=== PATIENT | male | born 1950 | race Caucasian/White ===

== ENCOUNTER → 2017-01-29 | Day surgery (SDC) | payer MEDICARE, OTHER ==
[~2017-01-29] MED LIST: Lactated Ringers 1,000 ML IV SCH; Propofol 200 MG/20 ML SDV IV ONE
[2017-01-29 11:57] VITALS: BP 125/69
--- NOTE | 2017-02-01 08:54 | OR ---
DATE OF OPERATION: 01/29/2017 PREOPERATIVE DIAGNOSIS: PRIOR LARGE TUBULOVILLOUS POLYP REMOVAL. POSTOPERATIVE DIAGNOSIS: PRIOR LARGE TUBULOVILLOUS POLYP REMOVAL. SURGEON: Ulises Sanders MD PROCEDURE: FULL-LENGTH COLONOSCOPY. ANESTHESIA: DOBIE MAN due to distal coronary artery disease. COMPLICATIONS: None. SPECIMEN: None. FINDINGS: Normal full-length colonoscopy. RECOMMENDATIONS: The patient actually should have one more followup in 3 years. 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 He is in for followup for that. DESCRIPTION OF PROCEDURE: The patient was prepped and draped, placed in the left lateral decubitus position. A lubricated Olympus colonoscope was inserted and relatively easily advanced to the cecum. Direct visualization of the ileocecal valve and appendiceal orifice was accomplished. The bowel prep was adequate. Upon withdrawal of scope, the cecum, ascending, and transverse colon completely benign. Throughout the entire left colon, I found no signs of any polyps, mass, ulcerations, or bleeding sites. No vascular abnormalities or signs of colitis. No significant diverticula. The rectal vault appeared benign. Retroflexion get a good look at the perianal area and showed no recurrence of adenomatous tissue, polyp, mass or otherwise. Air was then suctioned, and the scope was removed without complication. PEGGY/KEIRA /[id number]
== END ==
LOC: CC.SDS 09:59
PROVIDERS: ATTEND Family Medicine
DX: Z12.11 Encounter for screening for malignant neoplasm of colon (principal); I25.10 Atherosclerotic heart disease of native coronary artery without angina pectoris; I25.2 Old myocardial infarction; J45.909 Unspecified asthma, uncomplicated; G51.0 Bell's palsy; I10 Essential (primary) hypertension; E78.5 Hyperlipidemia, unspecified; H91.93 Unspecified hearing loss, bilateral; Z79.82 Long term (current) use of aspirin; Z86.010 Personal history of colon polyps; Z87.891 Personal history of nicotine dependence; Z79.899 Other long term (current) drug therapy; Z98.890 Other specified postprocedural states
CPT/HCPCS: G0105; J2704; J7120; 00810

== ENCOUNTER 2018-04-06 10:49 | Emergency (ER) | payer MEDICARE, OTHER ==
[2018-04-06 11:37] LABS: CHLORIDE,CL 102 mEq/L (98-106); SODIUM,NA 133 mEq/L (136-145)
[2018-04-06 12:05] VITALS: BP 129/91
--- NOTE | 2018-04-06 12:19 | EDM.PDOC ---
ED HPI GENERAL MEDICAL PROBLEM - General Chief Complaint: General Stated Complaint: light headed, ?BP issue Time Seen by Provider: 04/06/18 11:30 Source of Information: Reports: Patient History Limitations: Reports: No Limitations - History of Present Illness INITIAL COMMENTS - FREE TEXT/NARRATIVE: Chuy is a 68 yo male who presents to the ER with complaints of dizziness and concerns with his blood pressure. He states he was helping friend hang a screen door this morning and started to not feel well and feel lightheaded. STates he didn't eat anything this morning and drank 3 cups of coffee. He admits he usually doesn't drink 3 cups. States he did have similar symptoms before when he was picking up sticks but that was secondary to his blood pressure being low. Currently he has no dizziness. His Lisinopril was decreased from 40 mg a day to 20 mg a day. He also takes Metoprolol 50 mg daily. He has had VT in the past, but no intervention was done. Underwent surgery of the left carotid d/t blockage in the past. Onset: Today, Sudden Duration: Improving, Resolved Prior to Arrival Location: Reports: Generalized - Related Data Allergies Allergy/AdvReac Type Severity Reaction Status Date / Time No Known Allergies Allergy Verified 04/06/18 10:57 Home Meds: Home Meds Aspirin [Irina Chewable] 81 mg PO DAILY 09/01/13 [History] Budesonide/Formoterol [Symbicort 160-4.5 Mcg Inhaler] 10.2 gm IH DAILY 09/01/13 [History] Metoprolol Succinate 50 mg PO DAILY 09/01/13 [History] Albuterol Sulfate [Proair Hfa] 2 puff INH TID PRN 01/28/17 [History] Acetaminophen [Tylenol] 325 mg PO Q4HR PRN 02/04/17 [History] Simvastatin [Zocor] 20 mg PO DAILY 02/04/17 [History] Lisinopril 20 mg PO DAILY 04/06/18 [History] Past Medical History HEENT History: Reports: Allergic Rhinitis, Hard of Hearing Cardiovascular History: Reports: High Cholesterol, Hypertension, VT, Other (See Below) Other Cardiovascular History: carotid bruit Respiratory History: Reports: Asthma - Past Surgical History Cardiovascular Surgical History: Reports: Carotid Endarterectomy, Other (See Below) Other Cardiovascular Surgeries/Procedures: angiogram Musculoskeletal Surgical History: Reports: Shoulder Surgery, Other (See Below) Other Musculoskeletal Surgeries/Procedures:: right finger amputuation surgery ( tops of 3 fingers) Social & Family History - Tobacco Use Smoking Status *Q: Former Smoker Used Tobacco, but Quit: Yes Month/Year Tobacco Last Used: quit 10 years ago - Caffeine Use Caffeine Use: Reports: Coffee - Recreational Drug Use Recreational Drug Use: No ED ROS GENERAL - Review of Systems Review Of Systems: See Below Constitutional: Denies: Fever, Chills, Diaphoresis, Decreased Appetite HEENT: Reports: No Symptoms. Denies: Vision Change Respiratory: Denies: Shortness of Breath, Wheezing, Cough Cardiovascular: Reports: Blood Pressure Problem, Lightheadedness. Denies: Chest Pain, Dyspnea on Exertion, Palpitations GI/Abdominal: Reports: No Symptoms : Reports: No Symptoms Neurological: Reports: No Symptoms. Denies: Headache, Numbness, Pre-Existing Deficit, Tingling, Difficulty Walking, Change in Speech Psychiatric: Reports: Anxiety ED EXAM, GENERAL - Physical Exam Exam: See Below Exam Limited By: No Limitations General Appearance: Alert, No Apparent Distress, Anxious Eye Exam: Bilateral Eye: Normal Inspection Ears: Normal External Exam, Normal Canal, Hearing Grossly Normal, Normal TMs Nose: Normal Inspection, Normal Mucosa, No Blood Throat/Mouth: Normal Inspection, Normal Lips, Normal Gums, Normal Oropharynx, Normal Voice, No Airway Compromise Head: Atraumatic, Normocephalic Neck: Normal Inspection, Supple Respiratory/Chest: No Respiratory Distress, Lungs Clear, Normal Breath Sounds Cardiovascular: Regular Rate, Rhythm, No Edema, No Murmur GI/Abdominal: Normal Bowel Sounds, Soft, Non-Tender, No Organomegaly, No Abnormal Bruit Extremities: Normal Inspection, No Pedal Edema Neurological: Alert, Oriented, Normal Cognition, No Motor/Sensory Deficits Psychiatric: Anxious Skin Exam: Warm, Dry, Intact, Normal Color, No Rash EKG INTERPRETATION EKG Date: 04/06/18 Rhythm: NSR Comparison: NA - No Prior EKG Course - Vital Signs Last Recorded V/S: Last Vital Signs Temp 97.3 F 04/06/18 10:53 Pulse 78 04/06/18 12:05 Resp 20 04/06/18 12:05 BP 129/91 H 04/06/18 12:05 Pulse Ox 97 04/06/18 12:05 - Orders/Labs/Meds Orders: Active Orders 24 hr Category Date Time Status Chest 2V [CR] Stat Exams 04/06/18 11:05 Taken Labs: Laboratory Tests 04/06/18 04/06/18 04/06/18 Range/Units 11:15 11:15 11:15 WBC 8.5 (5.0-10.0) 10^3/uL RBC 4.34 L (4.50-6.00) 10^6/uL Hgb 13.8 L (14.0-18.0) g/dL Hct 41.4 (40.0-54.0) % MCV 95.4 H (82.0-94.0) fL MCH 31.8 (27.0-32.0) pg MCHC 33.3 (33.0-38.0) g/dL RDW Coeff of Sathya 12.5 (11.0-15.0) % Plt Count 169 (150-400) 10^3/uL Neut % (Auto) 67.5 (35-85) % Lymph % (Auto) 21.0 (10-55) % Davidson % (Auto) 9.4 (0-16) % Eos % (Auto) 1.9 (0-5) % Baso % (Auto) 0.2 (0-3) % Neut # (Auto) 5.73 (1.80-7.00) 10^3/uL Lymph # (Auto) 1.78 (1.00-4.80) 10^3/uL Davidson # (Auto) 0.80 (0.00-0.80) 10^3/uL Eos # (Auto) 0.16 (0.00-0.45) 10^3/uL Baso # (Auto) 0.02 10^3/uL PT 10.1 (9.7-12.3) SEC INR 0.97 (0.92-1.18) APTT 27.5 (23.2-32.3) SEC Sodium 133 L (136-145) mEq/L Potassium 4.3 (3.5-5.0) mEq/L Chloride 102 (98-106) mEq/L Carbon Dioxide 27 (21-32) mmol/L BUN 26 H D (7-18) mg/dL Creatinine 1.3 (0.7-1.3) mg/dL Est Cr Clr Drug Dosing 61.35 mL/min Estimated GFR (MDRD) 55 L (>=60) mL/min Glucose 117 H (75-99) mg/dL Calcium 8.9 (8.4-10.1) mg/dL Total Bilirubin 0.6 (0.0-1.0) mg/dL AST 16 (15-37) U/L ALT 25 (12-78) U/L Alkaline Phosphatase 59 (46-116) U/L Lactate Dehydrogenase 129 (100-190) U/L Creatine Kinase 55 (35-232) U/L Troponin I < 0.017 (0.00-0.06) ng/mL Total Protein 7.5 (6.4-8.2) g/dL Albumin 3.5 (3.4-5.0) g/dL Departure - Departure Time of Disposition: 12:22 Disposition: Home, Self-Care 01 Clinical Impression: Episodic lightheadedness, Anxiety-like symptoms - Discharge Information Instructions: Living With Anxiety, Dizziness, [id number], Panic Attack Referrals: Cindy Zhao PA [Primary Care Provider] - Additional Instructions: 1) Cardiac work up completed today with no sign of heart damage. 2) Recommend cutting back on caffeine intake (coffee) as discussed. 3) Continue to take current medications as directed. 4) Increase water intake 5) Monitor alcohol consumption to see if this has any affect the next day. 6) Recheck with primary next week for follow up. Return to ER if any concerns at all. - Problem List & Annotations (1) Anxiety-like symptoms SNOMED Code(s): 67217709 Code(s): F41.9 - ANXIETY DISORDER, UNSPECIFIED Status: Acute Current Visit: Yes (2) Episodic lightheadedness SNOMED Code(s): 804945328 Code(s): R42 - DIZZINESS AND GIDDINESS Status: Acute Current Visit: Yes - My Orders Last 24 Hours: My Active Orders 04/06/18 11:05 Chest 2V [CR] Stat - Assessment/Plan Last 24 Hours: My Active Orders 04/06/18 11:05 Chest 2V [CR] Stat
== END 2018-04-06 12:30 | disposition home or self-care (01) ==
LOC: CC.ED 10:49
DX: R42 Dizziness and giddiness (principal); E78.00 Pure hypercholesterolemia, unspecified; I10 Essential (primary) hypertension; I25.2 Old myocardial infarction; Z87.891 Personal history of nicotine dependence; Z79.899 Other long term (current) drug therapy
CPT/HCPCS: 36415; 71046; 80053; 82550; 83615; 84484; 85025; 85610; 85730; 93005; 99284